=== PATIENT | female | born 1955 | race African-American/Black ===

== ENCOUNTER 2020-05-17 01:03 | Emergency (ER) | payer BC ==
[~2020-05-17] VITALS: Ht 165.1 cm; Wt 93.0 kg
[2020-05-17 02:35] LABS: BASOPHILS % 0.5 % (0.0-2.0); EOSINOPHILS % 2.6 % (0.0-5.0); HEMATOCRIT. 35.1 % (36.0-48.0); HEMOGLOBIN. 11.6 g/dL (12.0-16.0); LYMPHOCYTES % 53.9 % (20.0-50.0); MEAN CORPUSCULAR HEMOGLOBIN 27.9 pg (28.0-32.0); MEAN CORPUSCULAR VOLUME 84.7 fL (81.0-99.0); MONOCYTES % 8.8 % (2.0-8.0); NEUTROPHILS % 34.2 % (40.0-76.0); PLATELET 184 x1000/uL (130-400); RED BLOOD CELL COUNT 4.15 mill/uL (4.2-5.4); RED CELL DISTRIBUTION WIDTH 14.6 % (11.6-14.6)
[2020-05-17 02:36] LABS: CHLORIDE 111 mEq/L (98-107)
[2020-05-17 05:33] VITALS: BP 153/102
== END 2020-05-17 05:48 | disposition home or self-care (01) ==
LOC: ER 01:03
DX: I10 Essential (primary) hypertension (principal)
CPT/HCPCS: 36415; 71045; 80053; 83880; 84484; 85025; 93005; 93971; 99285